=== PATIENT | male | born 1975 | race African-American/Black ===

== ENCOUNTER 2016-07-02 12:59 | Emergency (ER) | payer MEDICAID ==
[2016-07-02 13:12] VITALS: TEMP 98.2; BMI 18.6
--- NOTE | 2016-07-02 13:30 | EDPRACDOC ---
- General Information Chief Complaint: Generalized Weakness Stated Complaint: HGB LOW 7.0 Time Seen by Provider: 07/02/16 13:26 Mode of Arrival: Car Home Medications: Home Medications Ciprofloxacin HCl [Cipro] 500 mg PO BID #20 tablet 07/02/16 Allergies/Adverse Reactions: Allergies Allergy/AdvReac Type Severity Reaction Status Date / Time levofloxacin [From Levaquin] Allergy Mild Nausea/Vomi Verified 07/02/16 13:12 ting - History of Present Illness Onset: 1 DAY HPI: PT HAD ROUTINE BLOODWORK AT DR RODAS. PT SENT FOR HB 7. YEARS AGO HAD TRANSFUSIONS. PT IS PARAPLEGIC, HAS SACRAL WOUND. DENIES SOB. PT HAS NOT NOTICED DARK OSTOMY OUTPUT. DOES NOT TAKE A LOT OF ASPIRIN. ED Past Medical History - History Reviewed Yes Nurses notes reviewed and agree except as marked - Patient Medical History GI/ History: Reports: Urinary Tract Infection Systemic History: Reports: Anemia. Denies: Cancer Additional Past Medical History: Paraplegia EDM Review of Systems - Review of Systems ROS Negative Except as Marked: Yes All systems reviewed and were negative except as marked Constitutional: No Symptoms Reported. negative: Fever Eyes: No Symptoms Reported Mouth: No Symptoms Reported Respiratory: No Symptoms Reported Cardiovascular: No Symptoms Reported Gastrointestinal: No Symptoms Reported - Physical Exam Constitutional: Alert (Awake), No apparent distress Oriented to: Time, Person, Place Last recorded Vital Signs: Last Vital Signs Temp 98.2 F 07/02/16 13:07 Pulse 76 07/02/16 13:07 Resp 20 07/02/16 13:07 BP 169/72 07/02/16 13:07 Pulse Ox 99 07/02/16 13:07 Oxygen Pulse Oxygen Saturation 99 O2 Device Room Air Oxygen Flow Rate Fraction of Inspired Oxygen ( FIO2) - HEENT Head: Normal ( normocephalic) Eye Exam: Normal (PERRL, EOMI, Sclera white) Oropharynx: Normal (Pharynx:Moist without exudate,Gums-no swelling) Nose: No Symptoms Reported (septum midline) Neck: Normal (FROM, trachea at midline) - Respiratory/Cardiovascular Respiratory: Normal - CTA (BBS clear to auscultation without adventitious sounds ) Cardiovascular: Normal (RRR without murmur, gallop or rub) - GI Auscultation: Normal (NABS) Palpation: Normal (Soft,No rebound or guarding, non distended) Tenderness: Non tender Camilo's Sign: Negative - Musculoskeletal Back: Normal (Non-Tender) Extremities: Other (LOWER EXTREMITY PARALYSIS) - Integumentary Skin: Normal, Warm, Dry, Other (ostomy is pink) Lymphatics: Adenopathy (left inguinal.) - Neurologic Memory Impaired: Normal Motor Function: Normal (Normal tone, Pulses 2+ No cyanosis or edema, FROM) Cranial Nerve: Normal (CN II-X11 intact sensation, strength 5/5) Cerebellar: Normal Mood Description: Normal Perception: Normal - Results 07/02/16 14:15 07/02/16 14:15 - EKG EKG #1 EKG Time: 13:47 -: Yes EKG interpreted by me Rate: bpm: 94 [place]: Normal Block: None Hypertrophy: None ST: Normal Comments: NORMAL EKG - Additional Information pt bandaged his sacral wound this am and prefers not to have me look. Decision Time to Discharge: 16:29 - Departure Yes I personally saw and evaluated the patient. Disposition: Home Condition: Stable Final Diagnosis: Anemia in chronic illness, UTI (lower urinary tract infection) Catheter-associated urinary tract infection Qualifiers: Indwelling urinary catheter type: indwelling urethral catheter Encounter type: initial encounter Qualified Code(s): T83.511A - Infection and inflammatory reaction due to indwelling urethral catheter, initial encounter; N39.0 - Urinary tract infection, site not specified Instructions: Urinary Tract Infection in Men (ED), Dysuria Education/Counseling Given To: Patient Education/Counseling Given Regarding: Diagnosis Referrals: Pascale Rodas MD [Primary Care Provider] - One Week Prescriptions: New Ciprofloxacin HCl [Cipro] 500 mg PO BID #20 tablet Additional Instructions: tuesday special procedures blood transfusion.
[2016-07-02 14:23] LABS: MPV 8.4 fL (7.4-10.4)
[2016-07-02 15:08] LABS: SEG NEUTROPHIL 73 % (45-76)
[2016-07-02 15:25] LABS: BLOOD UREA NITROGEN 14 MG/DL (9-20); CALC CORRECTED 9.9 MG/DL (8.4-10.2); CALCIUM 8.8 MG/DL (8.4-10.2); CALCULATED OSMOLALITY 274 MOs/Kg (270-290); CHLORIDE 106 mEq/L (98-107); GLUCOSE 94 mg/dL (70-99); SODIUM LEVEL 142 mEq/L (137-146)
[2016-07-02 15:57] LABS: LEUKOCYTES/URINE 2+ (NEGATIVE); NITRITE/URINE NEG (NEGATIVE); RBC/URINE TNTC (0-2); URINE OCCULT BLOOD 2+ (NEG/TRACE); WBC/URINE TNTC (0-2)
[2016-07-02 16:20] VITALS: BP 126/65; PULSE 85
[2016-07-02] MEDS ORDERED: CIPROFLOXACIN HCL 500 MG TAB PO ONE (16:29)
== END 2016-07-02 16:55 | disposition home or self-care (01) ==
LOC: ED 12:59
DX: D63.8 Anemia in other chronic diseases classified elsewhere (principal); T83.518A Infection and inflammatory reaction due to other urinary catheter, initial encounter; N39.0 Urinary tract infection, site not specified; X58.XXXA Exposure to other specified factors, initial encounter; Y93.9 Activity, unspecified
CPT/HCPCS: 36415; 80053; 81001; 85007; 85027; 87077; 87086; 87186; 93005; 99284; J3490; 86850; 86900; 86901